=== PATIENT | female | born 1955 | race Caucasian/White ===

== ENCOUNTER 2023-09-05 07:20 | Day surgery (SDC) | payer MEDICARE, MEDICAID ==
[~2023-09-05] VITALS: Ht 157.5 cm; Wt 80.7 kg
[2023-09-05] VITALS (10 sets, daily range): BP systolic 97–161; BP diastolic 47–99; PULSE 52–70; RESP 10–12; TEMP 98.2; O2SAT 92–99
[2023-09-05] MEDS ORDERED: nitroGLYCERIN 0.4mg SUBLingual tab SL PRN ×2 (07:50→11:10)
[2023-09-05] MEDS ORDERED: HYDR12.55 PO (07:56)
[2023-09-05] MEDS ORDERED: ATOR40TA72 PO (07:56)
[2023-09-05] MEDS ORDERED: ALEN70TA80 PO (07:56)
[2023-09-05] MEDS ORDERED: OLME20TA69 PO (07:56)
[2023-09-05] MEDS ORDERED: ANTI1CAP5 PO (07:56)
[2023-09-05] MEDS ORDERED: HYDR-3965 PO (07:56)
[2023-09-05 08:35] LABS: BASOPHILS # (AUTO) 0.1 X10'3 (0-0.2); BASOPHILS % (AUTO) 1.1 % (0-1); EOSINOPHILS # (AUTO) 0.2 X10'3 (0-0.9); EOSINOPHILS % (AUTO) 2.1 % (0-6); HEMATOCRIT 45.3 % (35.0-45.0); HEMOGLOBIN 15.4 g/dl (12.0-16.0); LYMPHOCYTES # (AUTO) 1.3 X10'3 (1.1-4.8); LYMPHOCYTES % (AUTO) 17.8 % (21-51); MEAN CORPUSCULAR HEMOGLOBIN 30.3 PG (27.0-31.0); MEAN CORPUSCULAR HGB CONC 33.9 g/dL (33.0-36.5); MEAN CORPUSCULAR VOLUME 89.3 FL (78-98); MEAN PLATELET VOLUME 9.4 FL (7.4-10.4); MONOCYTES # (AUTO) 0.4 X10'3 (0-0.9); MONOCYTES % (AUTO) 6.1 % (2-12); NEUTROPHILS # (AUTO) 5.3 X10'3 (1.8-7.7); NEUTROPHILS % (AUTO) 72.9 % (42-75); PLATELET COUNT 254 X10'3 (140-440); RED BLOOD COUNT 5.07 X10'6 (4.20-5.60); RED CELL DISTRIBUTION WIDTH 15.3 % (11.5-14.5); WHITE BLOOD COUNT 7.3 X10'3 (4.5-11.0)
[2023-09-05] MEDS ORDERED: iohexol 350MG/ML 100ml bottle IV ONE (08:42)
[2023-09-05] MEDS ORDERED: LIDOcaine 1% 30ml preserv. free vial ONE (08:42)
[2023-09-05] MEDS ORDERED: fentaNYL/PF 50MCG/1 ML 2ML syringe ONE (08:42)
[2023-09-05] MEDS ORDERED: iohexol 350 MG/ML 50ML vial IV ONE (08:42)
[2023-09-05] MEDS ORDERED: midazolam 1 mg/ML 2ml injection ONE (08:42)
[2023-09-05 08:44] LABS: ALBUMIN 4.1 G/DL (3.4-5.0); ANION GAP 8 (8-16); BLOOD UREA NITROGEN 29 MG/DL (7-18); BUN/CREATININE RATIO 25.9 (10.0-20.0); CALCIUM 9.5 MG/DL (8.5-10.1); CHLORIDE 104 MMOL/L (99-107); CREATININE 1.12 MG/DL (0.40-0.90); GLUCOSE 98 MG/DL (70-104); POTASSIUM 3.7 MMOL/L (3.5-5.1); SODIUM 141 MMOL/L (135-145); TOTAL CARBON DIOXIDE 28.7 MMOL/L (24-32); eCRCL 37 ML/MIN; eGFR 48 ML/MIN
[2023-09-05] MEDS: normal saline 1,000 ML IV SCH (08:45)
[2023-09-05] MEDS: LORazepam 0.5 MG tablet PO PRN (08:45)
[2023-09-05] MEDS: diphenhydrAMINE 25mg capsule PO PRN (08:46)
[2023-09-05 08:51] LABS: APTT 29 SECONDS (22-32); PROTHROMBIN TIME 10.4 SECONDS (9.0-12.0)
[2023-09-05] MEDS ORDERED: HYDROmorphone 1 mg/ml syringe ONE (09:51)
[2023-09-05] MEDS ORDERED: ondansetron/PF 4mg/2ml inj IV PRN (11:10)
[2023-09-05] MEDS ORDERED: OXAZEpam 15mg capsule PO PRN (11:10)
[2023-09-05] MEDS ORDERED: HYDROcodone/acetaminophen 5mg/325mg tablet PO PRN (11:10)
[2023-09-05] MEDS ORDERED: HYDROcodone/acetaminophen 10/325mg tab PO PRN (11:10)
[2023-09-05] MEDS ORDERED: proCHLORperazine 10 MG/2 ml inj IV PRN (11:10)
[2023-09-05] MEDS ORDERED: normal saline 1000ml 1,000 ML IV SCH (11:10)
== END 2023-09-05 15:55 | disposition home or self-care (01) ==
LOC: SSTAY O 07:20
PROVIDERS: ATTEND Internal Medicine Cardiovascular Disease
DX: R94.39 Abnormal result of other cardiovascular function study (principal); I25.119 Atherosclerotic heart disease of native coronary artery with unspecified angina pectoris; I10 Essential (primary) hypertension; E66.9 Obesity, unspecified; J44.9 Chronic obstructive pulmonary disease, unspecified; Z68.32 Body mass index [BMI] 32.0-32.9, adult
CPT/HCPCS: 36415; 71046; 80048; 85025; 85610; 85730; 93005; 93458; 99152; 99153; A6258; C1760; J1170; J1644; J2001; J2250; J3010; J7030; Q0163; Q9967; Z7610; J3490